=== PATIENT | male | born 1980 | race Caucasian/White ===

== ENCOUNTER 2016-09-27 18:10 | Emergency (ER) | payer OTHER ==
[~2016-09-27 18:10] MED LIST: AZIT250T PO; FLUT9.9S NS; IBUP-1007 PO
[2016-09-27 18:27] VITALS: BP 156/84
[2016-09-27] MEDS ORDERED: AMOX1TAB61 PO (18:53)
[2016-09-27] MEDS ORDERED: PSEU120T9 PO (18:53)
--- NOTE | 2016-09-27 18:53 | PHYS DOC ---
Past Medical History Past Medical History: Other Additional Past Medical Histor: epilepsy Past Surgical History: No Surgical History Alcohol Use: None Drug Use: None Adult General Chief Complaint Chief Complaint: FACE PAIN HPI HPI Patient is a 36 year old male presents emergency department stating that he is having frontal and maxillary sinus pressure. He states this is been going on for the last 3 days. Denies any fever, chills or any nausea vomiting. He states that he has just had generalized body aches and discomfort. Patient states that he needs to have either Tylenol 3 ibuprofen No. 3 or some type of strong pain medication to help with the pain and discomfort.` Review of Systems Review of Systems Constitutional: Denies fever or chills [] Eyes: Denies change in visual acuity, redness, or eye pain [] HENT: nasal congestion denies sore throat [] Respiratory: Denies cough or shortness of breath [] Cardiovascular: No additional information not addressed in HPI [] GI: Denies abdominal pain, nausea, vomiting, bloody stools or diarrhea [] : Denies dysuria or hematuria [] Musculoskeletal: Denies back pain or joint pain [] Integument: Denies rash or skin lesions [] Neurologic: Denies headache, focal weakness or sensory changes [] Allergies Allergies Allergies Coded Allergies Type Severity Reaction Last Updated Verified No Known Drug Allergies 09/27/16 No Physical Exam Physical Exam Constitutional: Well developed, well nourished, no acute distress, non-toxic appearance. [] HENT: Normocephalic, atraumatic, bilateral external ears normal, oropharynx moist, no oral exudates, nose normal. Bilateral tympanic membranes appear to be normal. Throat with no erythematous drainage or discharge noted. Patient with frontal and maxillary sinus tenderness. Eyes: PERRLA, EOMI, conjunctiva normal, no discharge. [] Neck: Normal range of motion, no tenderness, supple, no stridor. [] Cardiovascular:Heart rate regular rhythm, no murmur [] Lungs & Thorax: Bilateral breath sounds clear to auscultation [] Skin: Warm, dry, no erythema, no rash. [] Back: No tenderness Extremities: No tenderness, no cyanosis, no clubbing, ROM intact, no edema. [] Neurologic: Alert and oriented X 3, normal motor function, normal sensory function, no focal deficits noted. [] Psychologic: Affect normal, judgement normal, mood normal. [] Current Patient Data Vital Signs Vital Signs Date Time Temp Pulse Resp B/P Pulse Ox O2 Delivery O2 Flow Rate FiO2 09/27/16 18:27 97.9 85 18 96 Room Air 97.9 EKG EKG [] Radiology/Procedures Radiology/Procedures [] Course & Med Decision Making Course & Med Decision Making Pertinent Labs and Imaging studies reviewed. (See chart for details) Patient is requesting Tylenol 3 or some type of pain medication with the dentist provides she is also requesting ibuprofen No. 3. Explained to patient Sudafed will help with the sinus pressure and discomfort. Also explained to continue regular Tylenol and ibuprofen [id number]. Patient consented used to be persistent that he needs to have narcotics for his pain. Explained to patient that sinus infections does not require narcotic usage. Patient states that he wait for a doctor to see him as he is requesting narcotics. Explained to patient that the doctors are in with critical patients it may be a while before he will be seen by them. Explained to patient that Sudafed will help with his pain and discomfort he is requesting a prescription for Sudafed which can be purchased [id number]. He will be discharged with Augmentin. He will also be recommended to drink plenty of fluids. Recommended following up with his primary care physician for further pain control. She was provided with signs and symptoms to return back to the emergency department. Dragon Disclaimer Dragon Disclaimer This electronic medical record was generated, in whole or in part, using a voice recognition dictation system. Departure Departure Impression: Primary Impression: Sinusitis Disposition: 01 HOME, SELF-CARE Condition: STABLE Referrals: NO PCP (PCP) Patient Instructions: Sinusitis, [id number] Additional Instructions: Activity as rest. Medications as prescribed. You may take Tylenol or ibuprofen [id number] for pain and discomfort. You may also use some nasal washes to help with her sinus congestion. Drink plenty of fluids such as water and propel or Gatorade. Follow-up through primary care physician next 3-5 days. Return back to emergency department for signs and symptoms of become worse. Scripts Pseudoephedrine Hcl (Sudafed 12-Hour)120 Mg Tablet.er1 Tab PO BID #20 TAB Prov:CHAGO DAMON DRIER UNLOADER 09/27/16 Amoxicillin/Potassium Clav (Augmentin 875-125 Tablet)1 Each Tablet1 Tab PO BID # 20 TAB Prov:CHAGO DAMON NP 09/27/16 CHAGO DAMON NP Sep 27, 2016 18:53
== END 2016-09-27 19:21 | disposition home or self-care (01) ==
LOC: ER 18:10
DX: J32.9 Chronic sinusitis, unspecified (principal); G40.909 Epilepsy, unspecified, not intractable, without status epilepticus
CPT/HCPCS: 99283

== ENCOUNTER 2021-11-08 11:48 | Emergency (ER) | payer SELFPAY ==
[~2021-11-08] VITALS: Ht 175.3 cm; Wt 83.9 kg
[~2021-11-08 11:48] MED LIST changes: +AMOX1TAB61 PO; +PSEU120T9 PO
[2021-11-08 11:56] VITALS: BP 159/93
[2021-11-08] MEDS ORDERED: DIPHTH,PERTUSS(ACELL),TET TOX 0.5 ML DISP.SYRIN. VAX IM ONE (13:00)
[2021-11-08] MEDS ORDERED: KETOROLAC 30 MG/ML VIAL. IM ONE (13:00)
[2021-11-08] MEDS ORDERED: BACITRACIN TOPICAL OINT PACKET. TP ONE (13:45)
[2021-11-08] MEDS ORDERED: CEPH500C PO (14:06)
[2021-11-08] MEDS ORDERED: HYDR-2759 PO (14:06)
[2021-11-08] MEDS ORDERED: BACI28.34 TP (14:06)
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
== END 2021-11-08 14:16 | disposition home or self-care (01) ==
LOC: ER 11:48
DX: T24.202A Burn of second degree of unspecified site of left lower limb, except ankle and foot, initial encounter (principal); G40.909 Epilepsy, unspecified, not intractable, without status epilepticus; X08.8XXA Exposure to other specified smoke, fire and flames, initial encounter; Y93.89 Activity, other specified; Y92.89 Other specified places as the place of occurrence of the external cause; Y99.8 Other external cause status
CPT/HCPCS: 90471; 90715; 96372; 99284; J1885